=== PATIENT | female | born 1950 | race Caucasian/White ===

== ENCOUNTER → 2016-08-09 | Outpatient (CLI) | payer MEDICARE | LOC: MAMO 12:49 | DX: Z12.31 Encounter for screening mammogram for malignant neoplasm of breast (principal); Z13.820 Encounter for screening for osteoporosis; M81.0 Age-related osteoporosis without current pathological fracture | CPT/HCPCS: 77080; G0202 ==

== ENCOUNTER → 2016-09-11 | Outpatient (CLI) | payer MEDICARE | LOC: CT 09:03 | DX: R10.84 Generalized abdominal pain (principal); R11.2 Nausea with vomiting, unspecified; R63.0 Anorexia; R13.10 Dysphagia, unspecified; E86.0 Dehydration; K22.70 Barrett's esophagus without dysplasia; K86.1 Other chronic pancreatitis; K44.9 Diaphragmatic hernia without obstruction or gangrene; K42.9 Umbilical hernia without obstruction or gangrene; K21.9 Gastro-esophageal reflux disease without esophagitis; Z90.49 Acquired absence of other specified parts of digestive tract | CPT/HCPCS: J7050; J7120; Q9962 ==

== ENCOUNTER → 2016-09-29 | Outpatient (CLI) | payer MEDICARE | LOC: MAMO 08:27 | DX: R92.8 Other abnormal and inconclusive findings on diagnostic imaging of breast (principal); Z90.710 Acquired absence of both cervix and uterus | CPT/HCPCS: G0204 ==

== ENCOUNTER → 2016-10-11 | Outpatient (CLI) | payer MEDICARE | LOC: HEART 5 13:54 | DX: J44.9 Chronic obstructive pulmonary disease, unspecified (principal) | CPT/HCPCS: 94060; 94729 ==

== ENCOUNTER → 2016-10-13 | Outpatient (CLI) | payer MEDICARE | LOC: CT 10:00 | DX: F17.210 Nicotine dependence, cigarettes, uncomplicated (principal) | CPT/HCPCS: G0297 ==